=== PATIENT | female | born 1985 | race Caucasian/White ===

== ENCOUNTER 2018-05-23 05:05 | Emergency (ER) | payer MEDICAID ==
[~2018-05-23] VITALS: Ht 154.9 cm; Wt 53.1 kg
[2018-05-23 05:14] VITALS: Ht 154.9 cm; Wt 53.1 kg
[2018-05-23 06:36] VITALS: BP 119/72
== END 2018-05-23 06:36 | disposition home or self-care (01) ==
LOC: ED 05:05
DX: L70.0 Acne vulgaris (principal)

== ENCOUNTER 2018-05-24 04:10 | Emergency (ER) | payer MEDICAID ==
[~2018-05-24] VITALS: Ht 154.9 cm; Wt 53.6 kg
[2018-05-24 04:16] VITALS: Ht 154.9 cm; Wt 53.6 kg
[2018-05-24 06:49] VITALS: BP 120/78
== END 2018-05-24 06:49 | disposition home or self-care (01) ==
LOC: ED 04:10
DX: L02.01 Cutaneous abscess of face (principal)
CPT/HCPCS: J2001

== ENCOUNTER 2018-09-02 19:06 | Emergency (ER) | payer MEDICAID ==
[~2018-09-02] VITALS: Ht 154.9 cm; Wt 55.3 kg
[2018-09-02 19:10] VITALS: BP 124/63; Ht 154.9 cm; Wt 55.3 kg
== END 2018-09-02 23:06 | disposition home or self-care (01) ==
LOC: ED 19:06
DX: S29.012A Strain of muscle and tendon of back wall of thorax, initial encounter (principal); S20.212A Contusion of left front wall of thorax, initial encounter; V43.32XA Unspecified car occupant injured in collision with other type car in nontraffic accident, initial encounter; W22.10XA Striking against or struck by unspecified automobile airbag, initial encounter; Y93.I9 Activity, other involving external motion; Y92.413 State road as the place of occurrence of the external cause; Y99.8 Other external cause status

== ENCOUNTER 2020-03-26 02:40 | Emergency (ER) | payer MEDICAID ==
[~2020-03-26] VITALS: Ht 154.9 cm; Wt 60.8 kg
[2020-03-26 02:47] VITALS: BP 131/91; Ht 154.9 cm; Wt 60.8 kg
== END 2020-03-26 03:45 | disposition home or self-care (01) ==
LOC: ED 02:40
DX: L02.01 Cutaneous abscess of face (principal)
CPT/HCPCS: J2001

== ENCOUNTER 2020-05-16 11:50 | Emergency (ER) | payer MEDICAID ==
[~2020-05-16] VITALS: Ht 154.9 cm; Wt 59.9 kg
[2020-05-16 11:55] VITALS: Ht 154.9 cm; Wt 59.9 kg
[2020-05-16 13:03] VITALS: BP 123/78
== END 2020-05-16 13:03 | disposition home or self-care (01) ==
LOC: ED 11:50
DX: F41.9 Anxiety disorder, unspecified (principal); L70.0 Acne vulgaris

== ENCOUNTER 2020-06-20 22:55 | Emergency (ER) | payer OTHER ==
[~2020-06-20] VITALS: Ht 154.9 cm; Wt 60.4 kg
[2020-06-20 23:04] VITALS: Ht 154.9 cm; Wt 60.4 kg
[2020-06-21 00:59] VITALS: BP 122/80
== END 2020-06-21 00:59 | disposition home or self-care (01) ==
LOC: ED 22:55
DX: S00.03XA Contusion of scalp, initial encounter (principal); W22.8XXA Striking against or struck by other objects, initial encounter; Y93.89 Activity, other specified; Y92.89 Other specified places as the place of occurrence of the external cause; Y99.8 Other external cause status